=== PATIENT | male | born 1995 | race Two or more races ===

== ENCOUNTER 2017-01-20 09:42 | Emergency (ER) | payer SELFPAY ==
[~2017-01-20] VITALS: Ht 180.3 cm; Wt 74.8 kg
[2017-01-20] MEDS ORDERED: LIDOCAINE 1% HCL (LOCAL ANESTH.) INJ 20ML MDV IN ONE (12:45)
[2017-01-20 13:03] VITALS: BP 125/69
[2017-01-20] MEDS ORDERED: NEOMYCIN-BACITRACIN-POLYM UNITDOSE PKG TOP OINT TOP ONE (14:00)
== END 2017-01-20 14:07 | disposition home or self-care (01) ==
LOC: ER 09:50
DX: S51.812A Laceration without foreign body of left forearm, initial encounter (principal); S16.1XXA Strain of muscle, fascia and tendon at neck level, initial encounter; V43.52XA Car driver injured in collision with other type car in traffic accident, initial encounter; Y93.89 Activity, other specified; Y99.8 Other external cause status; Y92.89 Other specified places as the place of occurrence of the external cause
CPT/HCPCS: 12002; 72040; 99284; J2001

== ENCOUNTER 2017-01-22 11:18 | Emergency (ER) | payer MEDICAID, OTHER ==
[~2017-01-22] VITALS: Ht 180.3 cm; Wt 74.8 kg
[2017-01-22 11:31] VITALS: BP 110/58
== END 2017-01-22 13:13 | disposition home or self-care (01) ==
LOC: ER 11:18
DX: S51.812D Laceration without foreign body of left forearm, subsequent encounter (principal)

== ENCOUNTER 2017-01-30 09:02 | Emergency (ER) | payer OTHER ==
[~2017-01-30] VITALS: Ht 180.3 cm; Wt 74.8 kg
[2017-01-30 09:20] VITALS: BP 112/67
== END 2017-01-30 09:59 | disposition home or self-care (01) ==
LOC: ER 09:02
DX: S51.812D Laceration without foreign body of left forearm, subsequent encounter (principal); Z48.02 Encounter for removal of sutures